=== PATIENT | female | born 1965 | race Caucasian/White ===

== ENCOUNTER → 2016-08-12 | Outpatient (REF) | payer BC ==
[2016-08-12 09:37] LABS: BASOPHILS % (AUTO) 1 % (0-2); EOSINOPHILS # (AUTO) 0.3 10^3uL; EOSINOPHILS % (AUTO) 5 % (0-4); MEAN CORPUSCULAR HEMOGLOBIN 29.2 PG (26.0-34.0); MEAN CORPUSCULAR HGB CONC 34.3 g/dL (31.0-37.0); MEAN CORPUSCULAR VOLUME 85 FL (80-100); MEAN PLATELET VOLUME 9.9 FL (6.0-9.5); MONOCYTES # (AUTO) 0.6 X10^3; MONOCYTES % (AUTO) 9 % (3-11); NEUTROPHILS # (AUTO) 4.1 X10^3; NEUTROPHILS % (AUTO) 57 % (51-67); PLATELET COUNT 331 10^3uL (150-450); WHITE BLOOD COUNT 7.12 10^3uL (4.0-11.0)
[2016-08-12 09:39] LABS: BILIRUBIN,URINE Negative (Negative); CLARITY,URINE Clear; COLOR,URINE Yellow; GLUCOSE, URINE (UA) Negative (Negative); LEUKOCYTE ESTERASE ,URINE 1+ (Negative); PH,URINE 6.5 (5.0 - 8.0); UROBILINOGEN,URINE 0.2 mg/dL (0.2-1.0)
[2016-08-12 09:59] LABS: ALBUMIN 4.7 g/dL (3.4-5.0); CALCULATED IONIZED CALCIUM 3.9 mg/dL (3.8-4.6); TOTAL PROTEIN 7.9 g/dL (6.4-8.5)
[2016-08-12 10:40] LABS: RBC,URINE None Seen /HPF; URINE CENTRIFUGED VOLUME 12 mL
== END ==
LOC: LAB 09:24
PROVIDERS: ATTEND Nurse Practitioner Family
DX: I10 Essential (primary) hypertension (principal); R53.83 Other fatigue; R82.90 Unspecified abnormal findings in urine
CPT/HCPCS: 80053; 80061; 81003; 81015; 84443; 85025; 87088; 87147

== ENCOUNTER → 2016-08-26 | Outpatient (REF) | payer BC ==
[2016-08-26 11:23] LABS: ANION GAP 15.5 MEQ/L (3-15)
== END ==
LOC: LAB 10:58
PROVIDERS: ATTEND Nurse Practitioner Family
DX: I10 Essential (primary) hypertension (principal)
CPT/HCPCS: 80048

== ENCOUNTER 2016-09-12 15:15 | Outpatient (RCR) | payer BC ==
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
== END 2016-11-17 13:15 | disposition home or self-care (01) ==
LOC: PT 15:15
PROVIDERS: ATTEND Nurse Practitioner Family
DX: M54.2 Cervicalgia (principal); G44.209 Tension-type headache, unspecified, not intractable